=== PATIENT | male | born 1940 | race Caucasian/White ===

== ENCOUNTER 2020-06-01 11:03 | Outpatient (CLI) | payer MEDICARE, OTHER | END 2020-06-01 11:04 | disposition short-term general hospital (02) | LOC: EMS 11:03 | PROVIDERS: ATTEND Surgery | DX: I46.9 Cardiac arrest, cause unspecified (principal) | CPT/HCPCS: A0425; A0427 ==

== ENCOUNTER 2020-06-04 00:13 | Outpatient (CLI) | payer MEDICARE, OTHER | END 2020-06-04 00:14 | disposition EMS.NT | LOC: EMS 00:13 | PROVIDERS: ATTEND Surgery | DX: R46.89 Other symptoms and signs involving appearance and behavior (principal) ==

== ENCOUNTER 2020-08-11 09:42 | Outpatient (CLI) | payer MEDICARE, OTHER | END 2020-08-11 09:43 | disposition short-term general hospital (02) | LOC: EMS 09:42 | DX: M25.561 Pain in right knee (principal) | CPT/HCPCS: A0425; A0429 ==

== ENCOUNTER 2021-07-15 08:44 | Outpatient (CLI) | payer MEDICARE | END 2021-07-15 08:45 | disposition EMS.NT | LOC: EMS 08:44 | DX: R42 Dizziness and giddiness (principal); R11.10 Vomiting, unspecified ==

== ENCOUNTER 2022-12-01 04:27 | Emergency (ER) | payer MEDICARE ==
[2022-12-01 05:00] LABS: BILIRUBIN,URINE NEGATIVE (NEGATIVE); GLUCOSE, URINE (UA) 250 mg/dL (NEGATIVE); KETONES,URINE (UA) NEGATIVE (NEGATIVE); LEUKOCYTE ESTERASE, URINE NEGATIVE (NEGATIVE); NITRITE,URINE NEGATIVE (NEGATIVE); OCCULT BLOOD,URINE NEGATIVE (NEGATIVE); PROTEIN,URINE NEGATIVE (NEGATIVE); UROBILINOGEN,URINE 0.2 (NORMAL) E.U./dL (NORMAL)
[2022-12-01 05:02] LABS: CLARITY,URINE CLEAR (CLEAR)
--- NOTE | 2022-12-01 05:16 | ED Physician Documentation ---
History of Present Illness - Stated complaint Stated Complaint: LOW BLOOD SUGAR - Chief complaint Chief Complaint: General - Additonal information Additional information: Patient 82-year-old male presenting to the emergency department with chief complaint of low blood sugar. At approximately 4 AM this morning he was awoken by an alarm from his blood sugar monitor. It reported a value of 43. At that point he was feeling quite dizzy and family reports that he was acting in an erratic and abnormal manner. 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 Denies any fevers, cough, congestion, chest pain, shortness of breath, abdominal pain, nausea, vomiting, diarrhea or constipation. Review of Systems Constitutional: denies: Fever Eyes: denies: Loss of vision Ears: denies: Loss of hearing Nose: denies: Rhinorrhea / runny nose Throat: denies: Dental pain / toothache Cardiac: denies: Chest pain / pressure Respiratory: denies: Dyspnea GI: denies: Abdominal Pain, Nausea, Vomiting, Constipation, Diarrhea : denies: Dysuria Skin: denies: Rash Musculoskeletal: denies: Neck pain PD PAST MEDICAL HISTORY - Allergies Allergies/Adverse Reactions: Allergies Allergy/AdvReac Type Severity Reaction Status Date / Time No Known Drug Allergies Allergy Verified 12/01/22 04:44 PD ED PE NORMAL - Vitals Vital signs reviewed: Yes - General General: Alert and oriented X 3, No acute distress, Well developed/nourished, Other - HEENT HEENT: Atraumatic, PERRL, EOMI, Ears normal, Moist mucous membranes, Pharynx benign - Neck Neck: Supple, no meningeal sign, No JVD - Cardiac Cardiac: RRR, No murmur - Respiratory Respiratory: No respiratory distress - Abdomen Abdomen: Normal bowel sounds - Male Male : Deferred - Rectal Rectal: Deferred - Back Back: No CVA TTP - Derm Derm: Normal color - Extremities Extremities: No deformity, No tenderness to palpate, No edema - Neuro Neuro: Alert and oriented X 3, 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 Relevant findings are: Sinus rhythm with rate 76 bpm. Normal axis. Normal VA, QTc intervals. Right bundle branch block morphology. No concordant ST segment elevations, concordant ST segment depressions or excessive discordance in any lead. - Labs Labs: Laboratory Tests 12/01/22 12/01/22 12/01/22 04:33 04:56 05:12 WBC 9.3 RBC 4.38 L Hgb 14.2 Hct 42.2 MCV 96.3 H MCH 32.4 H MCHC 33.6 RDW 11.7 L Plt Count 262 MPV 10.3 Neut # (Auto) 6.1 Lymph # (Auto) 1.7 Day # (Auto) 1.2 H Eos # (Auto) 0.2 Baso # (Auto) 0.1 Absolute Nucleated RBC 0.00 Nucleated RBC % 0.0 Sodium Potassium Chloride Carbon Dioxide Anion Gap BUN Creatinine Estimated GFR (MDRD) Glucose POC Whole Bld Glucose 122 H Calcium Total Bilirubin AST ALT Alkaline Phosphatase Troponin I High Sens Total Protein Albumin Globulin Albumin/Globulin Ratio Lipase Urine Color LIGHT YELLOW Urine Clarity CLEAR Urine pH 6.0 Ur Specific Downs <=1.005 Urine Protein NEGATIVE Urine Glucose (UA) 250 H Urine Ketones NEGATIVE Urine Occult Blood NEGATIVE Urine Nitrite NEGATIVE Urine Bilirubin NEGATIVE Urine Urobilinogen 0.2 (NORMAL) Ur Leukocyte Esterase NEGATIVE Ur Microscopic Review NOT INDICATED Urine Culture Comments NOT INDICATED 12/01/22 12/01/22 05:12 05:12 WBC RBC Hgb Hct MCV MCH MCHC RDW Plt Count MPV Neut # (Auto) Lymph # (Auto) Day # (Auto) Eos # (Auto) Baso # (Auto) Absolute Nucleated RBC Nucleated RBC % Sodium 135 Potassium 4.1 Chloride 101 Carbon Dioxide 28 Anion Gap 6.0 BUN 10 Creatinine 0.8 Estimated GFR (MDRD) 93 Glucose 106 H POC Whole Bld Glucose Calcium 8.9 Total Bilirubin 0.8 AST 19 ALT 19 Alkaline Phosphatase 54 Troponin I High Sens 13.9 Total Protein 6.3 L Albumin 3.6 Globulin 2.7 Albumin/Globulin Ratio 1.3 Lipase 29 Urine Color Urine Clarity Urine pH Ur Specific Downs Urine Protein Urine Glucose (UA) Urine Ketones Urine Occult Blood Urine Nitrite Urine Bilirubin Urine Urobilinogen Ur Leukocyte Esterase Ur Microscopic Review Urine Culture Comments PD Medical Decision Making - ED course Complexity details: reviewed results, considered differential, d/w patient ED course: Patient is 82-year-old male presenting to the emergency department after an episode of symptomatic hypoglycemia that occurred this morning. Patient longstanding history insulin-dependent diabetes on both long and short acting insulin as well as metformin. On initial interview patient's and patient's wifeDenied any recent changes in medications however upon requestioning they did report that approximately 3 weeks ago they did increase their baseline Lantus from 18 to 23 units. Patient is afebrile, hemodynamically stable on arrival to the emergency department. EKG was benign. Electrolytes here within the emergency department were reassuring. No indications infection, hepatic or renal dysfunction. Urine analysis positive for glucose but no indications of infection either. Clear etiology for patient's episode of hypoglycemia is unsure however he remained stable after several hours of monitoring in the emergency department. Will discharge with instructions to decrease his current dose of Lantus from 23 to 12 units nightly for the next few nights and to follow-up carefully with primary care for reevaluation as soon as possible. Departure - Departure Disposition: 01 Home, Self Care Clinical Impression: Hypoglycemia Instructions: ED Diabetes Hypoglycemia Oral Agent Comments: Thank you for allowing us to care for you today at [facility]. All the test performed in the emergency department today including your EKG, blood work and urine studies were all very reassuring. Your blood sugar has remained stable here in the emergency department for the last several hours. I do want you to continue to keep your oral hypoglycemic medications available at all times. If you feel yourself becoming hypoglycemic please take 1 of these immediately. In the meantime I would like you to decrease your Lantus from 23 to 12 units nightly for the next few nights. Please monitor your blood sugars carefully. Please follow-up with your primary care doctor soon as possible. If anytime you develop any new or worsening symptoms please not hesitate to return.
[2022-12-01 05:22] LABS: BASOPHILS # (AUTO) 0.1 10^3/uL (0.0-0.1); BASOPHILS % (AUTO) 0.8 %; EOSINOPHILS # (AUTO) 0.2 10^3/uL (0.0-0.7); EOSINOPHILS % (AUTO) 1.9 %; HCT - HEMATOCRIT 42.2 % (42.0-52.0); HGB - HEMOGLOBIN 14.2 g/dL (14.0-18.0); LYMPHOCYTES # (AUTO) 1.7 10^3/uL (1.5-3.5); LYMPHOCYTES % (AUTO) 18.5 %; MEAN CORPUSCULAR HEMOGLOBIN 32.4 pg (27.0-31.0); MEAN CORPUSCULAR HGB CONC 33.6 g/dL (32.0-36.0); MEAN CORPUSCULAR VOLUME 96.3 fL (80.0-94.0); MEAN PLATELET VOLUME 10.3 fL (7.4-11.4); MONOCYTES # (AUTO) 1.2 10^3/uL (0.0-1.0); MONOCYTES % (AUTO) 12.6 %; NEUTROPHILS # (AUTO) 6.1 10^3/uL (1.5-6.6); NEUTROPHILS % (AUTO) 65.9 %; PLT - PLATELET COUNT 262 10^3/uL (130-450); RED BLOOD COUNT 4.38 10^6/uL (4.70-6.10); RED CELL DISTRIBUTION WIDTH 11.7 % (12.0-15.0); WHITE BLOOD COUNT 9.3 x10^3/uL (4.8-10.8)
[2022-12-01 05:46] LABS: ALBUMIN 3.6 g/dL (3.2-5.5); ALBUMIN/GLOBULIN RATIO 1.3 (1.0-2.2); BILIRUBIN,TOTAL 0.8 mg/dL (0.2-1.0); CALCIUM 8.9 mg/dL (8.5-10.3); CREATININE 0.8 mg/dL (0.6-1.2); POTASSIUM 4.1 mmol/L (3.5-5.0); TOTAL PROTEIN 6.3 g/dL (6.7-8.2)
[2022-12-01 06:36] VITALS: BP 154/63
== END 2022-12-01 06:45 | disposition home or self-care (01) ==
LOC: ED 04:27
DX: E11.649 Type 2 diabetes mellitus with hypoglycemia without coma (principal); Z79.4 Long term (current) use of insulin; Z79.84 Long term (current) use of oral hypoglycemic drugs
CPT/HCPCS: 36415; 80053; 81001; 81003; 83690; 84484; 85025; 87086; 93005; 99283; 99284

== ENCOUNTER 2022-12-18 23:57 | Emergency (ER) | payer MEDICARE ==
[2022-12-19 00:26] LABS: BASOPHILS # (AUTO) 0.1 10^3/uL (0.0-0.1); BASOPHILS % (AUTO) 0.7 %; EOSINOPHILS # (AUTO) 0.2 10^3/uL (0.0-0.7); EOSINOPHILS % (AUTO) 1.3 %; HCT - HEMATOCRIT 49.3 % (42.0-52.0); HGB - HEMOGLOBIN 16.5 g/dL (14.0-18.0); LYMPHOCYTES # (AUTO) 2.3 10^3/uL (1.5-3.5); MEAN CORPUSCULAR HEMOGLOBIN 31.9 pg (27.0-31.0); MEAN CORPUSCULAR HGB CONC 33.5 g/dL (32.0-36.0); MEAN CORPUSCULAR VOLUME 95.2 fL (80.0-94.0); MEAN PLATELET VOLUME 10.2 fL (7.4-11.4); MONOCYTES # (AUTO) 1.3 10^3/uL (0.0-1.0); MONOCYTES % (AUTO) 10.6 %; NEUTROPHILS # (AUTO) 8.2 10^3/uL (1.5-6.6); PLT - PLATELET COUNT 328 10^3/uL (130-450); RED BLOOD COUNT 5.18 10^6/uL (4.70-6.10); RED CELL DISTRIBUTION WIDTH 11.7 % (12.0-15.0); WHITE BLOOD COUNT 12.1 x10^3/uL (4.8-10.8)
--- NOTE | 2022-12-19 00:41 | XRAY Report ---
PROCEDURE: Chest 1 View X-Ray INDICATIONS: Chest pain TECHNIQUE: One view of the chest was acquired. COMPARISON: None. FINDINGS: Surgical changes and devices: Sternal wires. Lungs and pleura: No pleural effusions or pneumothorax. Lungs are clear. Mediastinum: Mediastinal contours appear normal. Heart size is enlarged. Bones and chest wall: No suspicious bony lesions. Overlying soft tissues appear unremarkable. IMPRESSION: No acute cardiopulmonary process. Reviewed by: Ebony Gill MD on 12/19/2022 12:40 AM PDT Approved by: Ebony Gill MD on 12/19/2022 12:40 AM PDT Station ID: [id number]
[2022-12-19 00:43] LABS: ALBUMIN 4.5 g/dL (3.2-5.5); ALBUMIN/GLOBULIN RATIO 1.3 (1.0-2.2); BILIRUBIN,TOTAL 1.2 mg/dL (0.2-1.0); CALCIUM 9.7 mg/dL (8.5-10.3); CREATININE 1.1 mg/dL (0.6-1.2); POTASSIUM 3.8 mmol/L (3.5-5.0)
[2022-12-19 02:45] VITALS: BP 133/77
--- NOTE | 2022-12-19 02:50 | ED Physician Documentation ---
PD HPI CHEST PAIN - Stated complaint Stated Complaint: R SHOULDER/CHEST PX - Chief complaint Chief Complaint: Cardiac - History obtained from History obtained from: Patient, Family - Additional information Additional information: The patient comes to the emergency department with his for chief complaint of chest pain radiating into his right shoulder earlier this evening. states she thinks it started about 2044. The patient has dementia and is not able to articulate his symptoms always very well and also, does not have good memory of timelines. The patient was rolling around and crying in bed, the states, and since he has a history of a CABG, she decided to bring him in. The patient had seemed fine earlier in the day. The patient states his pain is pretty much gone now and states that it was already starting to subside by the time they got in the car. She denies the patient having any nausea or vomiting, and he did not seem short of breath according to the . He has not had any decreased exertional tolerance. No other complaints at this time. PD PAST MEDICAL HISTORY - Allergies Allergies/Adverse Reactions: Allergies Allergy/AdvReac Type Severity Reaction Status Date / Time No Known Drug Allergies Allergy Verified 12/19/22 00:04 PD ED PE NORMAL - Vitals Vital signs reviewed: Yes - General General: No acute distress, Well developed/nourished, Other (The patient is al ert and appropriate, though does exhibit repetitive speech and questioning.) - HEENT HEENT: Atraumatic, PERRL, EOMI, Moist mucous membranes - Neck Neck: Supple, no meningeal sign - Cardiac Cardiac: RRR, No murmur, Strong equal pulses - Respiratory Respiratory: No respiratory distress, Clear bilaterally - Abdomen Abdomen: Soft, Non tender, Non distended - Derm Derm: Normal color, Warm and dry, No rash - Extremities Extremities: No deformity, No edema - 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, No motor deficit, No sensory deficit, Normal speech, Other (Alert and articulate, though occasionally confused.) - Psych Psych: Normal mood, Normal affect Results - Vitals Vitals: Vital Signs - 24 hr 12/19/22 12/19/22 12/19/22 00:04 00:06 00:36 Temperature 36.5 C Heart Rate 83 86 83 Respiratory 16 16 16 Rate Blood Pressure 108/74 112/76 110/84 H O2 Saturation 99 99 99 12/19/22 12/19/22 12/19/22 01:06 01:36 02:06 Temperature Heart Rate 81 86 75 Respiratory 16 16 16 Rate Blood Pressure 155/85 H 122/81 H 116/86 H O2 Saturation 97 98 98 12/19/22 12/19/22 02:36 03:00 Temperature Heart Rate 65 80 Respiratory 16 19 Rate Blood Pressure 133/77 H 133/77 H O2 Saturation 96 96 Oxygen O2 Source Room air - EKG (time done) 0015 EKG releavant findings:: EKG personally interpreted by author of this note. Relevant findings are: Rate: Rate (enter#) (81) Rhythm: NSR [place]: Normal Intervals: Normal [place], RBBB QRS: Normal Ischemia: Normal ST segments Compare to prior EKG: Old EKG unavailable Computer interpretation: Agree with computer - Labs Labs: Laboratory Tests 12/19/22 12/19/22 12/19/22 00:16 00:16 00:16 WBC 12.1 H RBC 5.18 Hgb 16.5 Hct 49.3 MCV 95.2 H MCH 31.9 H MCHC 33.5 RDW 11.7 L Plt Count 328 MPV 10.2 Neut # (Auto) 8.2 H Lymph # (Auto) 2.3 [place] # (Auto) 1.3 H Eos # (Auto) 0.2 Baso # (Auto) 0.1 Absolute Nucleated RBC 0.00 Nucleated RBC % 0.0 Sodium 138 Potassium 3.8 Chloride 99 L Carbon Dioxide 30 Anion Gap 9.0 BUN 15 Creatinine 1.1 Estimated GFR (MDRD) 64 L Glucose 171 H Calcium 9.7 Total Bilirubin 1.2 H AST 23 ALT 20 Alkaline Phosphatase 67 Troponin I High Sens 19.2 Total Protein 8.0 Albumin 4.5 Globulin 3.5 Albumin/Globulin Ratio 1.3 Lipase 29 12/19/22 02:16 WBC RBC Hgb Hct MCV MCH MCHC RDW Plt Count MPV Neut # (Auto) Lymph # (Auto) [place] # (Auto) Eos # (Auto) Baso # (Auto) Absolute Nucleated RBC Nucleated RBC % Sodium Potassium Chloride Carbon Dioxide Anion Gap BUN Creatinine Estimated GFR (MDRD) Glucose Calcium Total Bilirubin AST ALT Alkaline Phosphatase Troponin I High Sens 16.1 Total Protein Albumin Globulin Albumin/Globulin Ratio Lipase PD Medical Decision Making - ED course Complexity details: reviewed results, re-evaluated patient, considered differential, d/w patient, d/w family ED course: The patient was worked up with laboratory studies including 2 sets of troponins, and is also worked up with EKG and chest x-ray. The work-up was entirely unremarkable, including 2 negative troponins. I discussed with the patient and that patient is stable for discharge home. We have discussed the usual indications for return. Departure - Departure Disposition: Home, Self Care Clinical Impression: Chest pain Qualifiers: Chest pain type: unspecified Qualified Code(s): R07.9 - Chest pain, unspecified Condition: Stable Instructions: ED Chest Pain Atypical Unkn Cause Comments: Overall, your laboratory studies look good, as does your EKG. Your blood glucose was 171 which is above normal, but not concerning [place] in an acute sense. Your cardiac enzymes were both within normal limits with the second level being lower than the first. At this point in time, it is not clear exactly what caused your pain, but there is no evidence of an emergent condition at this time. Please follow-up with your primary doctor as needed for further concerns. Discharge Date/Time: 12/19/22 03:07
== END 2022-12-19 03:07 | disposition home or self-care (01) ==
LOC: ED 23:57
DX: R07.9 Chest pain, unspecified (principal); F03.90 Unspecified dementia, unspecified severity, without behavioral disturbance, psychotic disturbance, mood disturbance, and anxiety
CPT/HCPCS: 36415; 80053; 83690; 84484; 85025; 93005; 99283; 99284

== ENCOUNTER 2022-12-24 15:43 | Emergency (ER) | payer MEDICARE ==
--- NOTE | 2022-12-24 16:12 | ED Physician Documentation ---
PD HPI MHE - Stated complaint Stated Complaint: ANXIETY - Chief complaint Chief Complaint: MHE - History obtained from History obtained from: Patient, Family - Additional information Additional information: 82-year-old gentleman with history of coronary disease status post remote four- vessel bypass and had a cardiac arrest that the says was related to hypoglycemia a few years ago presents with inexplicable acute fear of dying. Much of the history is from the because of his dementia but basically the patient says he for some reason knows he is going to today. He has no symptoms otherwise other than anxiety. says he had some nightmares last night and maybe that was the cause of all this. PD PAST MEDICAL HISTORY - Present Medications Home Medications: Ambulatory Orders Medication Instructions Recorded Confirmed risperiDONE [Risperdal] 0.5 mg PO BID PRN #15 tablet 12/24/22 - Allergies Allergies/Adverse Reactions: Allergies Allergy/AdvReac Type Severity Reaction Status Date / Time No Known Drug Allergies Allergy Verified 12/24/22 15:47 PD ED PE NORMAL - Vitals Vital signs reviewed: Yes - General General: Other (He is alert and oriented to person and place but poor short-term memory.) - HEENT HEENT: PERRL, EOMI - Neck Neck: Supple, no meningeal sign, No bony TTP - Cardiac Cardiac: RRR, No murmur - Respiratory Respiratory: No respiratory distress, Clear bilaterally - Abdomen Abdomen: Non tender - Derm Derm: Normal color, Warm and dry - Extremities Extremities: No edema, No calf tenderness / cord - Neuro Eye Opening: Spontaneous Motor: Obeys Commands Verbal: Confused GCS Score: 14 Results - Vitals Vitals: Vital Signs - 24 hr 12/24/22 15:47 Temperature 36.5 C Heart Rate 89 Respiratory 16 Rate Blood Pressure 146/85 H O2 Saturation 97 Oxygen O2 Source Room air - EKG (time done) 1625 EKG releavant findings:: EKG personally interpreted by author of this note. Relevant findings are: Rate: Rate (enter#) (85) Rhythm: NSR [place]: Normal Intervals: Other (IVCD) Ischemia: Normal ST segments. No: ST elevation c/w ischemia, ST depression Computer interpretation: Agree with computer - Labs Labs: Laboratory Tests 12/24/22 12/24/22 16:19 16:19 WBC 13.4 H RBC 4.90 Hgb 15.6 Hct 46.8 MCV 95.5 H MCH 31.8 H MCHC 33.3 RDW 11.7 L Plt Count 310 MPV 10.6 Neut # (Auto) 10.4 H Lymph # (Auto) 1.5 [place] # (Auto) 1.3 H Eos # (Auto) 0.1 Baso # (Auto) 0.1 Absolute Nucleated RBC 0.00 Nucleated RBC % 0.0 Sodium 134 L Potassium 4.2 Chloride 99 L Carbon Dioxide 26 Anion Gap 9.0 BUN 16 Creatinine 1.1 Estimated GFR (MDRD) 64 L Glucose 322 H Calcium 9.5 Total Bilirubin 0.8 AST 18 ALT 19 Alkaline Phosphatase 74 Total Protein 7.2 Albumin 4.1 Globulin 3.1 Albumin/Globulin Ratio 1.3 PD Medical Decision Making - ED course ED course: 82-year-old gentleman presents with his for sense of impending doom after some nightmares last night without physical complaints otherwise. He was acting more normal after 0.5 mg of oral Risperdal. Work-up here in the department shows mild leukocytosis at 13.4, elevated blood sugar and an unremarkable EKG. He was happy to be reassured that there was no clear acute impending . Departure - Departure Disposition: 01 Home, Self Care Clinical Impression: Sense of impending doom Condition: Good Record reviewed to determine appropriate education?: Yes Instructions: ED Stress React Prescriptions: risperiDONE [Risperdal] 0.5 mg PO BID PRN #15 tablet PRN Reason: Anxiety Comments: No worrisome findings today. Do not drive. He can take the respite all on occasion if he is feeling anxious. Call your doctor to arrange a follow-up appointment, make the next available appointment. In the interim, return anytime if worse or if new symptoms develop.
[2022-12-24] MEDS: risperiDONE 0.25 MG TABLET PO SCH (16:24)
[2022-12-24] MEDS ORDERED: risperiDONE 0.25 MG TABLET PO SCH (16:24)
[2022-12-24 16:33] LABS: BASOPHILS # (AUTO) 0.1 10^3/uL (0.0-0.1); BASOPHILS % (AUTO) 0.5 %; EOSINOPHILS # (AUTO) 0.1 10^3/uL (0.0-0.7); EOSINOPHILS % (AUTO) 0.6 %; HCT - HEMATOCRIT 46.8 % (42.0-52.0); HGB - HEMOGLOBIN 15.6 g/dL (14.0-18.0); LYMPHOCYTES # (AUTO) 1.5 10^3/uL (1.5-3.5); LYMPHOCYTES % (AUTO) 11.5 %; MEAN CORPUSCULAR HEMOGLOBIN 31.8 pg (27.0-31.0); MEAN CORPUSCULAR HGB CONC 33.3 g/dL (32.0-36.0); MEAN CORPUSCULAR VOLUME 95.5 fL (80.0-94.0); MEAN PLATELET VOLUME 10.6 fL (7.4-11.4); MONOCYTES # (AUTO) 1.3 10^3/uL (0.0-1.0); MONOCYTES % (AUTO) 9.5 %; NEUTROPHILS # (AUTO) 10.4 10^3/uL (1.5-6.6); NEUTROPHILS % (AUTO) 77.5 %; PLT - PLATELET COUNT 310 10^3/uL (130-450); RED CELL DISTRIBUTION WIDTH 11.7 % (12.0-15.0); WHITE BLOOD COUNT 13.4 x10^3/uL (4.8-10.8)
[2022-12-24 16:45] LABS: ALBUMIN 4.1 g/dL (3.2-5.5); ALBUMIN/GLOBULIN RATIO 1.3 (1.0-2.2); BILIRUBIN,TOTAL 0.8 mg/dL (0.2-1.0); CALCIUM 9.5 mg/dL (8.5-10.3); CREATININE 1.1 mg/dL (0.6-1.2); POTASSIUM 4.2 mmol/L (3.5-5.0); TOTAL PROTEIN 7.2 g/dL (6.7-8.2)
[2022-12-24 17:22] VITALS: BP 154/80
== END 2022-12-24 17:15 | disposition home or self-care (01) ==
LOC: ED 15:43
DX: R45.82 Worries (principal)
CPT/HCPCS: 36415; 80053; 85025; 93005; 99283; 99284; A9270

== ENCOUNTER 2023-04-01 10:00 | Emergency (ER) | payer MEDICARE ==
[2023-04-01 10:23] LABS: BASOPHILS # (AUTO) 0.1 10^3/uL (0.0-0.1); BASOPHILS % (AUTO) 0.4 %; EOSINOPHILS % (AUTO) 0.1 %; HCT - HEMATOCRIT 44.4 % (42.0-52.0); HGB - HEMOGLOBIN 14.7 g/dL (14.0-18.0); LYMPHOCYTES % (AUTO) 6.5 %; MEAN CORPUSCULAR HEMOGLOBIN 33.1 pg (27.0-31.0); MEAN CORPUSCULAR HGB CONC 33.1 g/dL (32.0-36.0); MEAN PLATELET VOLUME 9.9 fL (7.4-11.4); MONOCYTES # (AUTO) 1.6 10^3/uL (0.0-1.0); MONOCYTES % (AUTO) 10.3 %; NEUTROPHILS # (AUTO) 12.6 10^3/uL (1.5-6.6); NEUTROPHILS % (AUTO) 82.4 %; PLT - PLATELET COUNT 378 10^3/uL (130-450); RED BLOOD COUNT 4.44 10^6/uL (4.70-6.10); WHITE BLOOD COUNT 15.3 x10^3/uL (4.8-10.8)
[2023-04-01 10:32] LABS: SLIDE REVIEW? Indicated
[2023-04-01 10:39] LABS: ALBUMIN 4.2 g/dL (3.2-5.5); ALBUMIN/GLOBULIN RATIO 1.4 (1.0-2.2); BILIRUBIN,TOTAL 0.7 mg/dL (0.2-1.0); CREATININE 1.4 mg/dL (0.6-1.3); POTASSIUM 4.8 mmol/L (3.5-4.5); TOTAL PROTEIN 7.2 g/dL (6.4-8.9)
[2023-04-01 10:53] LABS: PLATELET ESTIMATE, MANUAL NORMAL (130-450,000) (NORMAL); PLATELET MORPHOLOGY NORMAL APPEARANCE (NORMAL); RBC MORPHOLOGY (MULTIPLE) NORMAL APPEARANCE (NORMAL); WBC MORPHOLOGY (MULTIPLE) NORMAL APPEARANCE (NORMAL)
[2023-04-01] MEDS ORDERED: HYDROmorphone 1 MG/ML CARPUJECT IVP STA (11:28)
[2023-04-01 12:46] LABS: BILIRUBIN,URINE NEGATIVE (NEGATIVE); GLUCOSE, URINE (UA) 250 mg/dL (NEGATIVE); KETONES,URINE (UA) NEGATIVE (NEGATIVE); LEUKOCYTE ESTERASE, URINE NEGATIVE (NEGATIVE); NITRITE,URINE NEGATIVE (NEGATIVE); OCCULT BLOOD,URINE NEGATIVE (NEGATIVE); PROTEIN,URINE NEGATIVE (NEGATIVE); UROBILINOGEN,URINE 0.2 (NORMAL) E.U./dL (NORMAL)
[2023-04-01 12:47] LABS: CLARITY,URINE CLEAR (CLEAR)
--- NOTE | 2023-04-01 12:56 | CT Report ---
PROCEDURE: ABDOMEN/PELVIS W INDICATIONS: diffuse abd pain, recent dx gastric and rectal CA CONTRAST: 100ml Omni 300 TECHNIQUE: After the administration of intravenous contrast, 5 mm thick sections acquired from the diaphragms to the symphysis. 5 mm thick coronal and sagittal reformats were acquired. For radiation dose reducti on, the following was used: automated exposure control, adjustment of mA and/or kV according to hiwot ent size. COMPARISON: None FINDINGS: Image quality: Excellent. Lung bases and heart: Cardiomegaly. Large hiatal hernia. Liver: No solid mass. Gallbladder and biliary tree: Cholelithiasis without wall thickening. No biliary dilation. Spleen: No splenomegaly. Pancreas: No pancreatic ductal dilation. Adrenals: No adrenal nodule. Kidneys and ureters: Mild hydronephroureter. No nephrolithiasis. No complex renal cystic lesions whic h require follow-up. Bowel and peritoneum: Large colonic stool load. Mild ascites adjacent to the second segment of the du odenum and the hepatic flexure (series 2, image 31). Lymph nodes: No central or retroperitoneal adenopathy. Vessels: No infrarenal aortic aneurysm. PELVIS Reproductive organs: Prostatomegaly. Bladder: Markedly distended. Pelvic lymph nodes: No pelvic adenopathy by size criteria. Bones: No aggressive osseous abnormality. Other: Left inguinal hernia containing fat. IMPRESSION: Suspected acute urinary retention, with a markedly distended bladder, moderate bilateral hydronephrou reter and marked prostatomegaly. Small volume ascites, particularly along the second portion of the duodenum and the hepatic flexure. Unclear etiology but duodenal ulcer or colitis are considerations. No measurable rectal mass or gastric mass. Reviewed by: Glynn Argueta on 04/01/2023 12:55 PM PDT Approved by: Glynn Argueta on 04/01/2023 12:55 PM PDT Station ID: [id number]
--- NOTE | 2023-04-01 13:47 | ED Physician Documentation ---
History of Present Illness - Stated complaint Stated Complaint: GI - Chief complaint Chief Complaint: Abd Pain - History obtained from History obtained from: Patient, Family - History of Present Illness Timing: Today Pain level max: 6 Pain level now: 6 - Additonal information Additional information: Patient is an 82-year-old male who presents to the emergency department with abdominal pain today. states that he has a history of dementia and was crying in pain earlier today. She states he was recently diagnosed with gastric and rectal cancer. His history of BPH. No fevers. No chills. No vomiting. Nothing seems to make the pain better or worse. Patient unable to give any further history. His care is at [facility], has an appointment with his PCP later this week to discuss the newly diagnosed cancers. Review of Systems Constitutional: denies: Fever, Chills GI: denies: Vomiting, Diarrhea Skin: denies: Rash Musculoskeletal: denies: Neck pain, Back pain Neurologic: denies: Headache PD PAST MEDICAL HISTORY - Past Medical History Past Medical History: Yes Cardiovascular: Hypertension Endocrine/Autoimmune: Type 2 diabetes Psych: Anxiety Other Past Medical History: stomach and rectal cancer - Past Surgical History Past Surgical History: No - Present Medications Home Medications: Ambulatory Orders Medication Instructions Recorded Confirmed risperiDONE [Risperdal] 0.5 mg PO BID PRN #15 tablet 12/24/22 04/01/23 HYDROcod/ACETAM 5/325 [[place] 5/325] 1 ea PO Q6H PRN #14 tablet 04/01/23 metFORMIN [Glucophage] 500 mg PO ONCE 04/01/23 04/01/23 - Allergies Allergies/Adverse Reactions: Allergies Allergy/AdvReac Type Severity Reaction Status Date / Time No Known Drug Allergies Allergy Verified 04/01/23 10:07 - Social History Does the pt smoke?: No Smoking Status: Never smoker PD ED PE NORMAL - Vitals Vital signs reviewed: Yes - General General: No acute distress, Well developed/nourished, Other (Alert, oriented to person and place, pleasant) - HEENT HEENT: PERRL, Moist mucous membranes, Pharynx benign - Neck Neck: Supple, no meningeal sign - Cardiac Cardiac: RRR, Strong equal pulses - Respiratory Respiratory: No respiratory distress, Clear bilaterally - Abdomen Abdomen: Soft, Non tender, Non distended - Derm Derm: Warm and dry - Extremities Extremities: No edema, No calf tenderness / cord - Neuro Neuro: No motor deficit, No sensory deficit, Normal speech - Psych Psych: Normal mood, Normal affect Results - Vitals Vitals: Vital Signs - 24 hr 04/01/23 04/01/23 04/01/23 10:04 11:38 13:00 Temperature 36.7 C Heart Rate 103 H 54 L 90 Respiratory 20 20 18 Rate Blood Pressure 152/117 H 170/109 H 180/100 H O2 Saturation 96 95 98 If not protocol 2 : Oxygen Flow, liters/minute 04/01/23 14:41 Temperature 36.5 C Heart Rate 88 Respiratory 18 Rate Blood Pressure 144/90 H O2 Saturation 94 If not protocol : Oxygen Flow, liters/minute Oxygen O2 Source Nasal cannula - Labs Labs: Laboratory Tests 04/01/23 04/01/23 04/01/23 10:18 10:18 12:25 WBC 15.3 H RBC 4.44 L Hgb 14.7 Hct 44.4 MCV 100.0 H MCH 33.1 H MCHC 33.1 RDW 12.0 Plt Count 378 MPV 9.9 Neut # (Auto) 12.6 H Lymph # (Auto) 1.0 L Tillman # (Auto) 1.6 H Eos # (Auto) 0.0 Baso # (Auto) 0.1 Absolute Nucleated RBC 0.00 Nucleated RBC % 0.0 Manual Slide Review Indicated WBC Morphology NORMAL APPEARANCE Platelet Estimate NORMAL (130-450,000) Platelet Morphology NORMAL APPEARANCE RBC Morph Micro Appear NORMAL APPEARANCE Sodium 137 Potassium 4.8 H Chloride 100 L Carbon Dioxide 29 Anion Gap 8.0 BUN 18 Creatinine 1.4 H Estimated GFR (MDRD) 49 L Glucose 234 H Calcium 10.0 Total Bilirubin 0.7 AST 18 ALT 14 Alkaline Phosphatase 76 Total Protein 7.2 Albumin 4.2 Globulin 3.0 Albumin/Globulin Ratio 1.4 Lipase 58 Urine Color YELLOW Urine Clarity CLEAR Urine pH 6.0 Ur Specific [place] <=1.005 Urine Protein NEGATIVE Urine Glucose (UA) 250 H Urine Ketones NEGATIVE Urine Occult Blood NEGATIVE Urine Nitrite NEGATIVE Urine Bilirubin NEGATIVE Urine Urobilinogen 0.2 (NORMAL) Ur Leukocyte Esterase NEGATIVE Ur Microscopic Review NOT INDICATED Urine Culture Comments NOT INDICATED - Rads (name of study) CT abd/pelvis Relevant Findings:: Final report received, See rad report PD Medical Decision Making - ED course Complexity details: reviewed results, re-evaluated patient, considered differential, d/w patient, d/w family ED course: 82-year-old male presents to the emergency department with abdominal pain. Has history of a recent diagnosis of gastric cancer and rectal cancer. CT scan shows acute urinary retention. Mess[place] catheter was placed and abdominal pain resolved. No vomiting. Tolerating p.o. without difficulty. Has an appointment with his PCP on Saturday. tear down worker was also consulted and met with the patient and his . Resources were given. They are already working with a public health social worker from [facility]. We will leave the Messina catheter in place, prescribe a small amount of pain medication for home and have her follow-up with his doctor. Family counseled regarding signs and symptoms for which I believe and urgent re-evaluation would be necessary. Family with good understanding of and agreement to plan and is comfortable going home at this time This document was made in part using voice recognition software. While efforts are made to proofread this document, sound alike and grammatical errors may occur. Departure - Departure Disposition: Home, Self Care Clinical Impression: Urinary retention Condition: Good Instructions: ED Catheter Care Mayuri, ED Retention Urinary Male Follow-Up: your,doctor on Saturday as scheduled [Other] Prescriptions: HYDROcod/ACETAM 5/325 [[place] 5/325] 1 ea PO Q6H PRN #14 tablet PRN Reason: Pain Comments: We sent prescriptions to [facility] in [place]. Please follow-up with his doctor on Saturday as scheduled. I have included the results of his CT scan below. We have left the Messina catheter in place. Please return if he worsens I am prescribing a short course of narcotic pain medication for you. These are potentially dangerous and addictive medications that should be used carefully. These medications may constipate you. Take an [id number] stool softener (docusate) twice daily with plenty of water while taking these medications. If you go 24 hours without a bowel movement, take [id number] miralax, per package instructions. Do not drink or drive while taking these medications. If you received narcotic or sedating medications while in the emergency department, do not drive for 24 hours. Store this medication in a safe, secure place and out of reach of children. It is a violation of federal law to give or sell this medication to another person or to use in a manner other than prescribed. The ED will not refill narcotic prescriptions, including prescriptions lost or stolen. To dispose of unwanted medications: 1. [facility] at [address] in [place] has a medication drop box. They accept prescription medications (in pill form) Saturday through Saturday 9:00 a.m. to 5:00 p.m. 2. The [facility] accepts prescription medications (in pill form only) for disposal year round. Call for more information. 3. Contact the [facility] for the next [facility] sponsored prescription drug collection event. , [phone], or [phone]; PROCEDURE: ABDOMEN/PELVIS W INDICATIONS: diffuse abd pain, recent dx gastric and rectal CA CONTRAST: 100ml Omni 300 TECHNIQUE: After the administration of intravenous contrast, 5 mm thick sections acquired from the diaphragms to the symphysis. 5 mm thick coronal and sagittal reformats were acquired. For radiation dose reduction, the following was used: automated exposure control, adjustment of mA and/or kV according to patient size. COMPARISON: None FINDINGS: Image quality: Excellent. Lung bases and heart: Cardiomegaly. Large hiatal hernia. Liver: No solid mass. Gallbladder and biliary tree: Cholelithiasis without wall thickening. No biliary dilation. Spleen: No splenomegaly. Pancreas: No pancreatic ductal dilation. Adrenals: No adrenal nodule. Kidneys and ureters: Mild hydronephroureter. No nephrolithiasis. No complex renal cystic lesions which require follow-up. Bowel and peritoneum: Large colonic stool load. Mild ascites adjacent to the second segment of the duodenum and the hepatic flexure (series 2, image 31). Lymph nodes: No central or retroperitoneal adenopathy. Vessels: No infrarenal aortic aneurysm. PELVIS Reproductive organs: Prostatomegaly. Bladder: Markedly distended. Pelvic lymph nodes: No pelvic adenopathy by size criteria. Bones: No aggressive osseous abnormality. Other: Left inguinal hernia containing fat. IMPRESSION: Suspected acute urinary retention, with a markedly distended bladder, moderate bilateral hydronephroureter and marked prostatomegaly. Small volume ascites, particularly along the second portion of the duodenum and the hepatic flexure. Unclear etiology but duodenal ulcer or colitis are considerations. No measurable rectal mass or gastric mass. Forms: PCP List Discharge Date/Time: 04/01/23 14:49
[2023-04-01 14:46] VITALS: BP 144/90; O2SAT 94
== END 2023-04-01 14:49 | disposition home or self-care (01) ==
LOC: ED 10:00
DX: R33.9 Retention of urine, unspecified (principal); C16.9 Malignant neoplasm of stomach, unspecified; C20 Malignant neoplasm of rectum
CPT/HCPCS: 36415; 51702; 74177; 80053; 81003; 83690; 85025; 96374; 99283; J1170; 81001; 87086